=== PATIENT | male | born 1955 | race Caucasian/White ===

== ENCOUNTER 2017-05-05 18:33 | Emergency (ER) | payer OTHER ==
[~2017-05-05] VITALS: Ht 177.8 cm; Wt 92.0 kg
[2017-05-05] MEDS ORDERED: ASPI-1159 PO (18:42)
[2017-05-05] MEDS ORDERED: HYDR12.529 PO (18:42)
[2017-05-05] MEDS ORDERED: ACETAMINOPHEN 325MG TABLET PO ONE (23:45)
[2017-05-06 00:17] VITALS: BP 148/83
== END 2017-05-06 00:22 | disposition home or self-care (01) ==
LOC: ER 18:33
DX: M54.2 Cervicalgia (principal); I10 Essential (primary) hypertension; E78.00 Pure hypercholesterolemia, unspecified; V49.9XXA Car occupant (driver) (passenger) injured in unspecified traffic accident, initial encounter; Y93.89 Activity, other specified; Y92.89 Other specified places as the place of occurrence of the external cause; Y99.8 Other external cause status; Z79.82 Long term (current) use of aspirin
CPT/HCPCS: 99283